=== PATIENT | female | born 1960 | race Caucasian/White ===

== ENCOUNTER 2017-01-14 09:39 | Emergency (ER) | payer OTHER ==
[2017-01-14 10:02] VITALS: BP 117/69
--- NOTE | 2017-01-14 11:18 | UC ---
Throat Pain/Nasal Sunil HPI - HPI Summary HPI Summary: Patient presents to the clinic with complaints of sore throat x 2 days. She reports increased pain with swallowing, but is able to eat, drink and swallow but it hurts. He reports her son has recently been treated for strep throat and is worried she may have it also. Denies fever, chills, cough, chest or abdominal pain, nausea, vomiting, or diarrhea. - History of Current Complaint Chief Complaint: UCGeneralIllness Stated Complaint: SORE THROAT Time Seen by Provider: 01/14/17 10:33 Hx Obtained From: Patient ?: No Onset/Duration: Gradual Onset, Lasting Days Severity: Moderate Pain Intensity: 4 Pain Scale Used: 0-10 Numeric Associated Signs & Symptoms: Positive: Negative - Epiglottits Risk Factors Epiglottis Risk Factors: Negative - Allergies/Home Medications Allergies/Adverse Reactions: Allergies Allergy/AdvReac Type Severity Reaction Status Date / Time No Known Allergies Allergy Verified 01/14/17 09:57 Home Medications: Home Medications Sore Throat [place] 01/14/17 [History] PMH/Surg Hx/FS Hx/Imm Hx Previously Healthy: Yes Endocrine History: Thyroid Disease Cardiovascular History: Cardiac Disease, Hypertension - Surgical History Surgical History: Yes Surgery Procedure, Year, and Place: Gall Bladder. Appendectomy. Tubal Ligation - Family History Known Family History: Positive: Cardiac Disease, Hypertension, Diabetes - Social History Occupation: Unemployed Lives: With Family Alcohol Use: None Substance Use Type: None Smoking Status (MU): Heavy Every Day Tobacco Smoker Amount Used/How Often: 1ppd Review of Systems Constitutional: Negative Skin: Negative Eyes: Negative ENT: Sore Throat, Ear Ache Respiratory: Negative Cardiovascular: Negative Gastrointestinal: Negative Genitourinary: Negative All Other Systems Reviewed And Are Negative: Yes Physical Exam Triage Information Reviewed: Yes Appearance: Ill-Appearing Vital Signs: Initial Vital Signs Temp 98.6 F 01/14/17 09:58 Pulse 58 01/14/17 09:58 Resp 18 01/14/17 09:58 BP 117/69 01/14/17 09:58 Pulse Ox 96 01/14/17 09:58 Vital Signs Reviewed: Yes Eye Exam: Normal ENT: Positive: Pharyngeal erythema, TMs normal Neck exam: Normal Neck: Positive: Supple Respiratory Exam: Normal Cardiovascular Exam: Normal Abdominal Exam: Normal Skin Exam: Normal Throat Pain/Nasal Course/Dx - Course Course Of Treatment: Patient presents with complaints of sore thoat. Rapid strep was negative. Patient agreed to wait two days with conserviative measures and if no improvment with fill RX for zpack. She was discharged home with normal vital signs, and was afebrile. She understands that if her symtpoms worsen, persist or do not improve as indicated she will follow up with PCP or retrun to the clinic. - Differential Dx/Diagnosis Differential Diagnosis/HQI/PQRI: Pharyngitis, Other - viral sundrome Provider Diagnoses: pharyngitis. viral syndrome Discharge - Discharge Plan Condition: Stable Disposition: HOME Prescriptions: Azithromycin TAB* [Zithromax TAB (Z-MATT) 250 mg #6 tabs] 2 tab PO .TODAY, THEN 1 DAILY #1 matt Patient Education Materials: Pharyngitis (ED), Viral Syndrome (ED) Referrals: Jessica Conde, DATABASE ANALYST [Primary Care Provider] -
== END 2017-01-14 11:00 | disposition home or self-care (01) ==
LOC: UCEAST 09:39
DX: J02.9 Acute pharyngitis, unspecified (principal); B34.9 Viral infection, unspecified; E07.9 Disorder of thyroid, unspecified; I51.9 Heart disease, unspecified; I10 Essential (primary) hypertension; Z90.49 Acquired absence of other specified parts of digestive tract; F17.210 Nicotine dependence, cigarettes, uncomplicated
CPT/HCPCS: 87651; 99212; G0463